=== PATIENT | male | born 1985 | race Caucasian/White ===

== ENCOUNTER 2022-04-09 04:32 | Day surgery (SDC) | payer OTHER ==
[2022-04-02 15:34] VITALS: BMI 23.3
[~2022-04-09 04:32] MED LIST: LIDOCAINE 1%/EPI 1:100000 (20 ML MULTI DOSE VIAL) IJ ONE
[2022-04-09] MEDS ORDERED: oxyCODONE HCL 5 MG TABLET PO PRN ×2 (07:04)
[2022-04-09] MEDS ORDERED: LIDOCAINE 1%/EPI 1:100000 (20 ML MULTI DOSE VIAL) ONE (07:09)
[2022-04-09] MEDS ORDERED: DEXAMETHASONE SOD PHOSPHATE 4 MG/1 ML VIAL ONE (07:14)
[2022-04-09] MEDS ORDERED: MIDAZOLAM HCL 2 MG/2 ML SINGLE DOSE VIAL ONE (07:14)
[2022-04-09] MEDS ORDERED: PROPOFOL 40 ML ONE (07:14)
[2022-04-09] MEDS ORDERED: ROCURONIUM BROMIDE 50 MG/5 ML SYRINGE ONE (07:14)
[2022-04-09] MEDS ORDERED: LIDOCAINE HCL 2% 100 MG/5 ML DISP.SYRIN ONE (07:14)
[2022-04-09] MEDS ORDERED: LACTATED RINGERS SOLUTION 1,000 ML IV SCH (07:15)
[2022-04-09] MEDS ORDERED: ceFAZolin SODIUM 1 GM VIAL ONE (08:10)
[2022-04-09] MEDS ORDERED: ceFAZolin SODIUM 1 GM VIAL IVPB ONE (08:10)
[2022-04-09] MEDS ORDERED: LIDOCAINE 1%/EPI 1:100000 (20 ML MULTI DOSE VIAL) IJ ONE (08:12)
[2022-04-09] MEDS ORDERED: SUCCINYLCHOLINE CHLORIDE 200 MG/10 ML SYRINGE ONE (08:31)
[2022-04-09] MEDS ORDERED: GLYCOPYRROLATE 0.2 MG/1 ML VIAL ONE ×2 (08:57)
[2022-04-09] MEDS ORDERED: NEOSTIGMINE METHYLSULFATE 0.5 MG/ML - 10 ML MDV ONE (08:57)
[2022-04-09] MEDS ORDERED: BACITRACIN 15 GM TUBE TOPICAL OINTMENT ONE (09:11)
[2022-04-09] MEDS ORDERED: BACITRACIN 15 GM TUBE TOPICAL OINTMENT TP ONE (09:16)
[2022-04-09 12:20] VITALS: BP 103/62; PULSE 65; RESP 16; TEMP 98.8
== END 2022-04-09 13:25 | disposition home or self-care (01) ==
LOC: JASU-SURG 04:32
PROVIDERS: ATTEND Otolaryngology
PROC: 09TL8ZZ Resection of Nasal Turbinate, Via Natural or Artificial Opening Endoscopic (ICD-10-PCS; 2022-04-09)
PROC: 09BM8ZZ Excision of Nasal Septum, Via Natural or Artificial Opening Endoscopic (ICD-10-PCS; principal; 2022-04-09 08:00)
DX: J34.2 Deviated nasal septum (principal); J34.3 Hypertrophy of nasal turbinates
CPT/HCPCS: 88304-TC; 94760